=== PATIENT | female | born 1975 | race Caucasian/White ===

== ENCOUNTER 2022-03-16 13:17 | Outpatient (CLI) | payer OTHER, SELFPAY ==
[2022-03-16 14:12] LABS: Albumin* 4.5 g/dL (3.3-5.0); Chloride* 102 mmol/L (96-114)
[2022-03-16 14:13] LABS: Sodium* 139 mmol/L (135-149)
[2022-03-16 14:15] LABS: Alanine Aminotransferase* 28 U/L (4-35); Alkaline Phosphatase* 66 U/L (40-150); Aspartate Amino Transferase* 57 U/L (12-35); Bilirubin Total* 0.7 mg/dL (0.1-1.5); Blood Urea Nitrogen* 12 mg/dL (5-24); Carbon Dioxide* 28 mmol/L (20-32); Creatinine* 0.8 mg/dL (0.5-1.5); Estimated Glomerular Filt Rate 91 ml/min; Glucose* 90 mg/dL (60-115); Total Protein* 7.7 g/dL (6.0-8.3)
[2022-03-16 14:16] LABS: Calcium* 9.1 mg/dL (8.4-10.6)
== END 2022-03-16 13:18 | disposition home or self-care (01) ==
LOC: NFLDUCREF 13:18
PROVIDERS: PCP Family Medicine; Visit Provider Student in an Organized Health Care Education/Training Program
DX: R53.1 Weakness (principal)
CPT/HCPCS: 80053

== ENCOUNTER 2022-08-14 08:30 | Outpatient (RCR) | payer OTHER, SELFPAY | END 2022-10-14 13:41 | disposition home or self-care (01) | PROVIDERS: PCP Family Medicine; Visit Provider Family Medicine | DX: G57.03 Lesion of sciatic nerve, bilateral lower limbs (principal); M76.891 Other specified enthesopathies of right lower limb, excluding foot; M76.892 Other specified enthesopathies of left lower limb, excluding foot; M25.561 Pain in right knee; G89.29 Other chronic pain; M79.652 Pain in left thigh; M79.651 Pain in right thigh; M25.511 Pain in right shoulder | CPT/HCPCS: 97110; 97140; 97162; 97535 ==

== ENCOUNTER 2023-03-03 07:30 | Outpatient (RCR) | payer OTHER, SELFPAY | END 2023-04-28 14:50 | disposition home or self-care (01) | PROVIDERS: PCP Family Medicine | DX: M23.51 Chronic instability of knee, right knee (principal); M25.511 Pain in right shoulder; M25.561 Pain in right knee; M25.661 Stiffness of right knee, not elsewhere classified; Z47.89 Encounter for other orthopedic aftercare; Z51.89 Encounter for other specified aftercare | CPT/HCPCS: 97016; 97110; 97112; 97116; 97140; 97161 ==